=== PATIENT | male | born 1985 | race Caucasian/White ===

== ENCOUNTER 2019-07-29 08:34 | Inpatient (IN) | payer MEDICAID ==
[~2019-07-29] VITALS: Ht 154.9 cm; Wt 60.7 kg
[~2019-07-29 08:34] MED LIST: PROZ10 PO; QUET200T PO
[2019-07-29 08:59] VITALS: BP 121/68
[2019-07-29] MEDS ORDERED: HALOPERIDOL 5 MG TABLET PO PRN (09:15)
[2019-07-29] MEDS ORDERED: PROZ10 PO (09:20)
[2019-07-29] MEDS ORDERED: INFLUENZA VIRUS VACCINE QVS 2019-20 (3YR+)/PF 60 MCG/0.5 ML SYRINGE IM ONE (09:45)
[2019-07-29 10:20] VITALS: BP 103/74
[2019-07-29] MEDS: LORazepam 2 MG TABLET PO PRN (16:10)
[2019-07-29 17:49] VITALS: BP 125/77
[2019-07-30 00:08] VITALS: BP 108/66
[2019-07-30 07:49] LABS: BASOPHILS % (AUTO) 0.7 % (0.0-2.0); EOSINOPHILS % (AUTO) 1.9 % (1.0-6.0); HEMOGLOBIN 15.7 g/dL (13.5-17.5); LYMPHOCYTES # (AUTO) 2.1 K/uL (1.0-4.8); LYMPHOCYTES % (AUTO) 30.7 % (22.0-44.0); MEAN CORPUSCULAR HEMOGLOBIN 30.2 pg (26.0-34.0); MEAN CORPUSCULAR HGB CONC 34.1 G/dL (31.0-37.0); MEAN CORPUSCULAR VOLUME 89 fL (80-100); MONOCYTES # (AUTO) 0.5 K/uL (0.1-1.0); MONOCYTES % (AUTO) 8.2 % (2.0-9.0); NEUTROPHILS # (AUTO) 3.9 K/uL (1.8-7.7); NEUTROPHILS % (AUTO) 58.5 % (40.0-70.0); PLATELET COUNT (AUTO) 271 K/uL (150-450); RED BLOOD CELL COUNT(AUTO) 5.19 MIL/uL (4.50-5.90); RED CELL DISTRIBUTION WIDTH 12.5 % (11.5-14.5)
[2019-07-30 08:19] LABS: HEMOGLOBIN A1C 5.4 % (3.8-5.6)
[2019-07-30 08:22] LABS: APPEARANCE,URINE CLOUDY (CLEAR); BILIRUBIN,URINE NEGATIVE (NEGATIVE); GLUCOSE, URINE (UA) NEGATIVE (NEGATIVE); KETONES,URINE NEGATIVE (NEGATIVE); LEUKOCYTE ESTERASE ,URINE NEGATIVE (NEGATIVE); NITRATE,URINE NEGATIVE (NEGATIVE); OCCULT BLOOD,URINE NEGATIVE (NEGATIVE); PROTEIN,URINE NEGATIVE (NEGATIVE)
[2019-07-30 08:24] LABS: ALANINE AMINOTRANSFERASE 19 U/L (12-78); ALBUMIN 4.5 g/dL (3.4-5.0); ALKALINE PHOSPHATASE 76 U/L (46-116); ANION GAP 8 mmol/L (8-16); ASPARTATE AMINOTRANSFERASE 21 U/L (15-37); BILIRUBIN,TOTAL 0.7 mg/dL (0.1-1.0); CALCIUM, TOTAL 8.8 mg/dL (8.8-10.5); CARBON DIOXIDE 28 mmol/L (22-29); CHLORIDE 103 mmol/L (98-107); CHOL/HDL RATIO 2.8 (4.2-7.3); CHOLESTEROL 176 mg/dL (131-200); CREATININE 1.13 mg/dL (0.60-1.30); FREE T4 (FREE THYROXINE) 1.02 ng/dL (0.76-1.46); GLOMERULAR FILTR. RATE CALC > 60 mL/min (>60); GLUCOSE,RANDOM 87 mg/dL (70-110); HDL CHOLESTEROL 63 mg/dL (40-60); LDL CHOL (CALC.) 97 mg/dL (0-130); SODIUM SERUM 139 mmol/L (136-145); THYROID STIMULATING HORMONE 1.98 uIU/mL (0.36-3.74); TOTAL PROTEIN, SERUM 7.5 g/dL (6.4-8.2); TRIGLYCERIDES 82 mg/dL (15-150); UREA NITROGEN, BLOOD 16 mg/dL (7-18)
[2019-07-30 08:28] LABS: AMPHET/METH SCREEN,URINE NEGATIVE (NEGATIVE); BARBITURATE SCREEN, URINE NEGATIVE (NEGATIVE); BENZODIAZEPINES SCREEN,URINE NEGATIVE (NEGATIVE); CANNABINOID SCREEN,URINE POSITIVE (NEGATIVE); COCAINE SCREEN,URINE NEGATIVE (NEGATIVE); METHADONE SCREEN, URINE NEGATIVE (NEGATIVE); OPIATE SCREEN,URINE NEGATIVE (NEGATIVE)
[2019-07-30 08:36] LABS: PHENCYCLIDINE SCREEN,URINE NEGATIVE (NEGATIVE)
[2019-07-30 08:37] VITALS: BP 121/71
[2019-07-30] MEDS: ACYCLOVIR 5% 15 GM OINTMENT TP SCH ×3 (12:27→16:37)
[2019-07-30 16:08] VITALS: BP 119/73
[2019-07-31 00:30] VITALS: BP 101/64
[2019-07-31 08:22] VITALS: BP 114/76
[2019-07-31] MEDS: ARIPiprazole 5 MG TABLET PO SCH (08:24)
[2019-07-31] MEDS: ACYCLOVIR 5% 15 GM OINTMENT TP SCH ×3 (08:24→16:09)
[2019-07-31] MEDS: FLUoxetine HCL 20 MG CAPSULE PO SCH (08:24)
[2019-07-31 16:06] VITALS: BP 120/79
[2019-07-31] MEDS: ZOLPIDEM TARTRATE 10 MG TABLET PO PRN (21:03)
[2019-08-01 06:27] VITALS: BP 112/79
[2019-08-01 08:08] VITALS: BP 119/79
[2019-08-01] MEDS: ARIPiprazole 5 MG TABLET PO SCH (08:34)
[2019-08-01] MEDS: FLUoxetine HCL 20 MG CAPSULE PO SCH (08:34)
[2019-08-01] MEDS: ACYCLOVIR 5% 15 GM OINTMENT TP SCH ×3 (08:36→16:51)
[2019-08-01 16:04] VITALS: BP 120/72
[2019-08-02 00:03] VITALS: BP 114/73
[2019-08-02] MEDS: ZOLPIDEM TARTRATE 10 MG TABLET PO PRN (00:05)
[2019-08-02] MEDS: LORazepam 2 MG TABLET PO PRN ×2 (04:31→20:47)
[2019-08-02 08:19] VITALS: BP 127/84
[2019-08-02] MEDS: FLUoxetine HCL 20 MG CAPSULE PO SCH (08:32)
[2019-08-02] MEDS: ARIPiprazole 5 MG TABLET PO SCH (08:32)
[2019-08-02] MEDS: ACYCLOVIR 5% 15 GM OINTMENT TP SCH ×3 (08:33→16:10)
[2019-08-02 16:11] VITALS: BP 118/77
[2019-08-03 06:08] VITALS: BP 124/86
[2019-08-03 08:19] VITALS: BP 107/62
[2019-08-03] MEDS: FLUoxetine HCL 20 MG CAPSULE PO SCH (08:43)
[2019-08-03] MEDS: ARIPiprazole 5 MG TABLET PO SCH (08:43)
[2019-08-03] MEDS: ACYCLOVIR 5% 15 GM OINTMENT TP SCH ×3 (08:44→16:26)
[2019-08-03 16:49] VITALS: BP 105/84
[2019-08-03] MEDS: LORazepam 2 MG TABLET PO PRN (17:56)
[2019-08-03] MEDS: ZOLPIDEM TARTRATE 10 MG TABLET PO PRN (20:43)
[2019-08-04 00:50] VITALS: BP 136/79
[2019-08-04 08:11] VITALS: BP 130/70
[2019-08-04] MEDS: FLUoxetine HCL 20 MG CAPSULE PO SCH (09:00)
[2019-08-04] MEDS: ARIPiprazole 5 MG TABLET PO SCH (09:00)
[2019-08-04] MEDS: ACYCLOVIR 5% 15 GM OINTMENT TP SCH ×2 (09:01→12:43)
[2019-08-04] MEDS ORDERED: ARIP5TAB8 PO (11:48)
[2019-08-04] MEDS ORDERED: FLUO-191 PO (11:48)
== END 2019-08-04 18:14 | disposition home or self-care (01) | DRG 753 ==
LOC: B2S 10:15
DX: F31.4 Bipolar disorder, current episode depressed, severe, without psychotic features (principal); R45.851 Suicidal ideations; F12.10 Cannabis abuse, uncomplicated; F17.200 Nicotine dependence, unspecified, uncomplicated; I10 Essential (primary) hypertension; N40.0 Benign prostatic hyperplasia without lower urinary tract symptoms; F41.9 Anxiety disorder, unspecified; Z22.7 Latent tuberculosis; Z59.0 Homelessness; Z79.899 Other long term (current) drug therapy; Z81.8 Family history of other mental and behavioral disorders; Z91.5 Personal history of self-harm; Z28.21 Immunization not carried out because of patient refusal
CPT/HCPCS: 80307; 83036; 84439; 84443; 90686

== ENCOUNTER 2021-02-13 16:08 | Inpatient (IN) | payer MEDICAID ==
[~2021-02-13] VITALS: Ht 157.5 cm; Wt 68.9 kg
[~2021-02-13 16:08] MED LIST changes: +ARIP5TAB37 PO; +FLUO-191 PO; -PROZ10 PO; -QUET200T PO
[2021-02-13] MEDS ORDERED: HALOPERIDOL LACTATE 5 MG/ML VIAL ONE (16:38)
[2021-02-13] MEDS ORDERED: LORazepam 2 MG/ML VIAL ONE (16:38)
[2021-02-13] MEDS ORDERED: DiphenhydrAMINE HCL 50 MG/ML VIAL ONE (16:38)
[2021-02-13 17:00] LABS: COVID AG,FIA SOURCE NASOPHARYNGEAL
[2021-02-13] MEDS ORDERED: LORazepam 2 MG TABLET PO PRN (17:00)
[2021-02-13] MEDS ORDERED: HALOPERIDOL 5 MG TABLET PO PRN (17:00)
[2021-02-13] MEDS ORDERED: ZOLPIDEM TARTRATE 10 MG TABLET PO PRN (17:00)
[2021-02-13 17:44] LABS: BASOPHILS % (AUTO) 0.5 % (0.0-2.0); EOSINOPHILS % (AUTO) 0.8 % (1.0-6.0); HEMATOCRIT 44.2 % (41-53); HEMOGLOBIN 15.2 g/dL (13.5-17.5); LYMPHOCYTES # (AUTO) 1.3 K/uL (1.0-4.8); LYMPHOCYTES % (AUTO) 27.6 % (22.0-44.0); MEAN CORPUSCULAR HEMOGLOBIN 30.5 pg (26.0-34.0); MEAN CORPUSCULAR HGB CONC 34.4 G/dL (31.0-37.0); MEAN CORPUSCULAR VOLUME 88 fL (80-100); MONOCYTES # (AUTO) 0.3 K/uL (0.1-1.0); MONOCYTES % (AUTO) 7.1 % (2.0-9.0); NEUTROPHILS # (AUTO) 3.1 K/uL (1.8-7.7); PLATELET COUNT (AUTO) 293 K/uL (150-450)
[2021-02-13 18:00] LABS: ANION GAP 19 mmol/L (8-16); CALCIUM, TOTAL 8.4 mg/dL (8.8-10.5); CARBON DIOXIDE 22 mmol/L (22-29); CHLORIDE 106 mmol/L (98-107); CREATININE 1.06 mg/dL (0.60-1.30); GLOMERULAR FILTR. RATE CALC > 60 mL/min (>60); GLUCOSE,RANDOM 84 mg/dL (70-110); POTASSIUM 3.4 mmol/L (3.5-5.1); SODIUM SERUM 147 mmol/L (136-145); UREA NITROGEN, BLOOD 8 mg/dL (7-18)
[2021-02-13 18:06] LABS: ALANINE AMINOTRANSFERASE 23 U/L (12-78); ALKALINE PHOSPHATASE 109 U/L (46-116); ASPARTATE AMINOTRANSFERASE 33 U/L (15-37); BILIRUBIN,TOTAL 0.3 mg/dL (0.1-1.0); TOTAL PROTEIN, SERUM 7.5 g/dL (6.4-8.2)
[2021-02-13 18:09] LABS: AMPHET/METH SCREEN,URINE NEGATIVE (NEGATIVE); BARBITURATE SCREEN, URINE NEGATIVE (NEGATIVE); BENZODIAZEPINES SCREEN,URINE NEGATIVE (NEGATIVE); CANNABINOID SCREEN,URINE NEGATIVE (NEGATIVE); COCAINE SCREEN,URINE NEGATIVE (NEGATIVE); METHADONE SCREEN, URINE NEGATIVE (NEGATIVE); OPIATE SCREEN,URINE NEGATIVE (NEGATIVE)
[2021-02-13 18:12] LABS: PHENCYCLIDINE SCREEN,URINE NEGATIVE (NEGATIVE)
[2021-02-13] MEDS ORDERED: INFLUENZA VIRUS VACCINE QVS 2021-22 (6MO+)/PF 60 MCG/0.5 ML SYRINGE IM. ONE (20:30)
[2021-02-13] MEDS ORDERED: POTASSIUM CHLORIDE 20 MEQ ER TABLET PO ONE (20:30)
[2021-02-13 20:43] VITALS: BP 96/60
[2021-02-14 08:00] VITALS: BP 128/82
[2021-02-14 08:00] LABS: ANION GAP 10 mmol/L (8-16); CALCIUM, TOTAL 8.5 mg/dL (8.8-10.5); CARBON DIOXIDE 28 mmol/L (22-29); CHLORIDE 107 mmol/L (98-107); CHOL/HDL RATIO 3.4 (4.2-7.3); CHOLESTEROL 191 mg/dL (131-200); CREATININE 1.18 mg/dL (0.60-1.30); FREE T4 (FREE THYROXINE) 0.86 ng/dL (0.76-1.46); GLOMERULAR FILTR. RATE CALC > 60 mL/min (>60); GLUCOSE,RANDOM 94 mg/dL (70-110); HDL CHOLESTEROL 57 mg/dL (40-60); LDL CHOL (CALC.) 113 mg/dL (0-130); POTASSIUM 3.7 mmol/L (3.5-5.1); SODIUM SERUM 145 mmol/L (136-145); THYROID STIMULATING HORMONE 1.48 uIU/mL (0.36-3.74); TRIGLYCERIDES 105 mg/dL (15-150); UREA NITROGEN, BLOOD 9 mg/dL (7-18)
[2021-02-14] MEDS ORDERED: BENZOCAINE/MENTHOL LOZENGE PO PRN (08:00)
[2021-02-14] MEDS ORDERED: OMEPRAZOLE 20 MG CAPSULE PO PRN (08:00)
[2021-02-14] MEDS ORDERED: CloNIDine HCL 0.1 MG TABLET PO PRN (08:00)
[2021-02-14] MEDS ORDERED: MAG HYDROX/AL HYDROX/SIMETH ES 30 ML SUSPENSION UDCUP PO PRN (08:00)
[2021-02-14] MEDS ORDERED: ACETAMINOPHEN 325 MG TABLET PO PRN (08:00)
[2021-02-14] MEDS ORDERED: BACITRACIN 28 GM OINTMENT TP PRN (08:00)
[2021-02-14] MEDS ORDERED: MAGNESIUM HYDROXIDE SUSPENSION 30 ML UDCUP PO PRN (08:00)
[2021-02-14] MEDS ORDERED: ALBUTEROL SULFATE HFA 90 MCG/PUFF 8 GM INHALER IH PRN (08:00)
[2021-02-14] MEDS ORDERED: DOCUSATE SODIUM 100 MG CAPSULE PO PRN (08:00)
[2021-02-14] MEDS ORDERED: LOPERAMIDE HCL 2 MG CAPSULE PO PRN (08:00)
[2021-02-14] MEDS ORDERED: IBUPROFEN 600 MG TABLET PO PRN (08:00)
[2021-02-14] MEDS ORDERED: PETROLATUM,WHITE 28 GM JELLY TP PRN (08:00)
[2021-02-14] MEDS ORDERED: ONDANSETRON HCL 4 MG TABLET PO PRN (08:00)
[2021-02-14] MEDS: ARIPiprazole 5 MG TABLET PO SCH (11:29)
[2021-02-14] MEDS: FLUoxetine HCL 20 MG CAPSULE PO SCH (11:30)
[2021-02-14 16:00] VITALS: BP 150/88
[2021-02-15 08:12] VITALS: BP 125/81
[2021-02-15] MEDS: ARIPiprazole 5 MG TABLET PO SCH (08:46)
[2021-02-15] MEDS: FLUoxetine HCL 20 MG CAPSULE PO SCH (08:46)
[2021-02-15 16:35] VITALS: BP 140/90
[2021-02-16] MEDS: ARIPiprazole 5 MG TABLET PO SCH (09:02)
[2021-02-16] MEDS: FLUoxetine HCL 20 MG CAPSULE PO SCH (09:02)
[2021-02-16 09:26] VITALS: BP 136/93
== END 2021-02-16 14:00 | disposition home or self-care (01) | DRG 750 ==
LOC: EMS 16:10 → 3EC 16:51
PROVIDERS: ADMIT Psychiatry & Neurology Psychiatry; ATTEND Psychiatry & Neurology Psychiatry
DX: F25.9 Schizoaffective disorder, unspecified (principal); R45.851 Suicidal ideations; E87.6 Hypokalemia; Z20.822 Contact with and (suspected) exposure to COVID-19; F10.129 Alcohol abuse with intoxication, unspecified; F31.9 Bipolar disorder, unspecified; F41.9 Anxiety disorder, unspecified; I10 Essential (primary) hypertension; K59.00 Constipation, unspecified; G47.00 Insomnia, unspecified; Z78.1 Physical restraint status
CPT/HCPCS: 80048; 80053; 80061; 84439; 84443; 85025; 99291; G0480; J1200; J1630; J2060

== ENCOUNTER 2021-03-23 16:23 | Inpatient (IN) | payer MEDICAID ==
[~2021-03-23] VITALS: Ht 160 cm; Wt 70.0 kg
[2021-03-23 17:15] LABS: COVID AG,FIA SOURCE NASOPHARYNGEAL
[2021-03-23 17:41] LABS: BASOPHILS % (AUTO) 0.5 % (0.0-2.0); EOSINOPHILS % (AUTO) 0.4 % (1.0-6.0); HEMATOCRIT 43.5 % (41-53); HEMOGLOBIN 15.2 g/dL (13.5-17.5); LYMPHOCYTES # (AUTO) 1.7 K/uL (1.0-4.8); LYMPHOCYTES % (AUTO) 15.3 % (22.0-44.0); MEAN CORPUSCULAR HEMOGLOBIN 30.6 pg (26.0-34.0); MEAN CORPUSCULAR HGB CONC 34.9 G/dL (31.0-37.0); MEAN CORPUSCULAR VOLUME 88 fL (80-100); MONOCYTES # (AUTO) 0.4 K/uL (0.1-1.0); MONOCYTES % (AUTO) 3.5 % (2.0-9.0); NEUTROPHILS # (AUTO) 8.7 K/uL (1.8-7.7); NEUTROPHILS % (AUTO) 80.3 % (40.0-70.0); PLATELET COUNT (AUTO) 336 K/uL (150-450); RED BLOOD CELL COUNT(AUTO) 4.95 MIL/uL (4.50-5.90); RED CELL DISTRIBUTION WIDTH 12.4 % (11.5-14.5)
[2021-03-23 17:58] LABS: ALANINE AMINOTRANSFERASE 19 U/L (12-78); ALKALINE PHOSPHATASE 135 U/L (46-116); ANION GAP 13 mmol/L (8-16); ASPARTATE AMINOTRANSFERASE 25 U/L (15-37); BILIRUBIN,TOTAL 0.4 mg/dL (0.1-1.0); CALCIUM, TOTAL 8.4 mg/dL (8.8-10.5); CARBON DIOXIDE 26 mmol/L (22-29); CHLORIDE 107 mmol/L (98-107); CREATININE 1.14 mg/dL (0.60-1.30); GLOMERULAR FILTR. RATE CALC > 60 mL/min (>60); GLUCOSE,RANDOM 105 mg/dL (70-110); SODIUM SERUM 146 mmol/L (136-145); TOTAL PROTEIN, SERUM 7.5 g/dL (6.4-8.2); UREA NITROGEN, BLOOD 7 mg/dL (7-18)
[2021-03-23 18:01] LABS: POTASSIUM 2.9 mmol/L (3.5-5.1)
[2021-03-23] MEDS ORDERED: POTASSIUM CHLORIDE 20 MEQ ER TABLET PO ONE (18:15)
[2021-03-23] MEDS ORDERED: HALOPERIDOL 5 MG TABLET PO PRN (18:30)
[2021-03-23] MEDS ORDERED: ZOLPIDEM TARTRATE 10 MG TABLET PO PRN (18:30)
[2021-03-23] MEDS ORDERED: LORazepam 2 MG TABLET PO PRN (18:30)
[2021-03-24] MEDS ORDERED: ONDANSETRON HCL 4 MG TABLET PO PRN (08:00)
[2021-03-24] MEDS ORDERED: BENZOCAINE/MENTHOL LOZENGE PO PRN (08:00)
[2021-03-24] MEDS ORDERED: LOPERAMIDE HCL 2 MG CAPSULE PO PRN (08:00)
[2021-03-24] MEDS ORDERED: PETROLATUM,WHITE 28 GM JELLY TP PRN (08:00)
[2021-03-24] MEDS ORDERED: ALBUTEROL SULFATE HFA 90 MCG/PUFF 8 GM INHALER IH PRN (08:00)
[2021-03-24] MEDS ORDERED: OMEPRAZOLE 20 MG CAPSULE PO PRN (08:00)
[2021-03-24] MEDS ORDERED: ACETAMINOPHEN 325 MG TABLET PO PRN (08:00)
[2021-03-24] MEDS ORDERED: BACITRACIN 28 GM OINTMENT TP PRN (08:00)
[2021-03-24] MEDS ORDERED: DOCUSATE SODIUM 100 MG CAPSULE PO PRN (08:00)
[2021-03-24] MEDS ORDERED: CloNIDine HCL 0.1 MG TABLET PO PRN (08:00)
[2021-03-24] MEDS ORDERED: MAG HYDROX/AL HYDROX/SIMETH ES 30 ML SUSPENSION UDCUP PO PRN (08:00)
[2021-03-24] MEDS ORDERED: MAGNESIUM HYDROXIDE SUSPENSION 30 ML UDCUP PO PRN (08:00)
[2021-03-24] MEDS ORDERED: IBUPROFEN 600 MG TABLET PO PRN (08:00)
[2021-03-24] MEDS: MULTIVITAMINS WITH MINERALS, THERAPEUTIC TABLET PO SCH (08:21)
[2021-03-24 08:23] LABS: CHOL/HDL RATIO 3.7 (4.2-7.3)
[2021-03-24 08:30] VITALS: BP 132/97
[2021-03-24 08:47] LABS: POTASSIUM 4.9 mmol/L (3.5-5.1)
[2021-03-24 16:25] VITALS: BP 118/74
[2021-03-24] MEDS ORDERED: INFLUENZA VIRUS VACCINE QVS 2021-22 (6MO+)/PF 60 MCG/0.5 ML SYRINGE IM. ONE (19:00)
[2021-03-25 06:56] LABS: ANION GAP 6 mmol/L (8-16); CALCIUM, TOTAL 8.6 mg/dL (8.8-10.5); CARBON DIOXIDE 31 mmol/L (22-29); CHLORIDE 105 mmol/L (98-107); CREATININE 1.22 mg/dL (0.60-1.30); GLOMERULAR FILTR. RATE CALC > 60 mL/min (>60); GLUCOSE,RANDOM 104 mg/dL (70-110); POTASSIUM 4.6 mmol/L (3.5-5.1); SODIUM SERUM 142 mmol/L (136-145); UREA NITROGEN, BLOOD 11 mg/dL (7-18)
[2021-03-25 08:23] VITALS: BP 124/82
[2021-03-25] MEDS: ARIPiprazole 10 MG TABLET PO SCH ×3 (09:00→14:16)
[2021-03-25] MEDS: FLUoxetine HCL 20 MG CAPSULE PO SCH (10:22)
[2021-03-25] MEDS: MULTIVITAMINS WITH MINERALS, THERAPEUTIC TABLET PO SCH (10:22)
[2021-03-25 16:26] VITALS: BP 124/85
[2021-03-26] MEDS: ARIPiprazole 10 MG TABLET PO SCH (08:37)
[2021-03-26] MEDS: FLUoxetine HCL 20 MG CAPSULE PO SCH (08:37)
[2021-03-26] MEDS: MULTIVITAMINS WITH MINERALS, THERAPEUTIC TABLET PO SCH (08:37)
[2021-03-26 09:08] VITALS: BP 133/83
[2021-03-26 16:00] VITALS: BP 124/84
[2021-03-27] MEDS: ARIPiprazole 10 MG TABLET PO SCH (08:37)
[2021-03-27] MEDS: MULTIVITAMINS WITH MINERALS, THERAPEUTIC TABLET PO SCH (08:37)
[2021-03-27] MEDS: FLUoxetine HCL 20 MG CAPSULE PO SCH (08:38)
[2021-03-27 09:40] VITALS: BP 102/80
[2021-03-27] MEDS ORDERED: ARIP10TA38 PO (11:24)
== END 2021-03-27 12:30 | disposition home or self-care (01) | DRG 750 ==
LOC: EMS 16:24 → 3EC 21:56
PROVIDERS: ADMIT Psychiatry & Neurology Psychiatry; ATTEND Psychiatry & Neurology Psychiatry
DX: F25.1 Schizoaffective disorder, depressive type (principal); E87.0 Hyperosmolality and hypernatremia; E86.0 Dehydration; E87.6 Hypokalemia; F12.90 Cannabis use, unspecified, uncomplicated; F41.9 Anxiety disorder, unspecified; G47.00 Insomnia, unspecified; I10 Essential (primary) hypertension; K59.00 Constipation, unspecified; F10.129 Alcohol abuse with intoxication, unspecified; Z20.822 Contact with and (suspected) exposure to COVID-19; Z28.21 Immunization not carried out because of patient refusal
CPT/HCPCS: 80048; 80053; 80061; 84132; 84295; 85025; 99285; G0480

== ENCOUNTER 2021-08-19 13:24 | Inpatient (IN) | payer MEDICAID ==
[~2021-08-19] VITALS: Ht 167.6 cm; Wt 75.0 kg
[~2021-08-19 13:24] MED LIST changes: +ARIP10TA38 PO; -ARIP5TAB37 PO; +FLUO-177 PO; -FLUO-191 PO
[2021-08-19] MEDS ORDERED: DiphenhydrAMINE HCL 50 MG/ML VIAL ONE (13:41)
[2021-08-19] MEDS ORDERED: HALOPERIDOL LACTATE 5 MG/ML VIAL ONE (13:41)
[2021-08-19] MEDS ORDERED: LORazepam 2 MG/ML VIAL ONE (13:41)
[2021-08-19] MEDS ORDERED: FLUO20CA36 PO (13:42)
[2021-08-19] MEDS ORDERED: HALOPERIDOL LACTATE 5 MG/ML VIAL IM ONE (13:45)
[2021-08-19] MEDS ORDERED: LORazepam 2 MG/ML VIAL IM ONE (13:45)
[2021-08-19] MEDS ORDERED: DiphenhydrAMINE HCL 50 MG/ML VIAL IM ONE (13:45)
[2021-08-19 14:59] LABS: COVID AG,FIA SOURCE NASOPHARYNGEAL
[2021-08-19] MEDS ORDERED: LORazepam 2 MG TABLET PO PRN (15:00)
[2021-08-19] MEDS ORDERED: HALOPERIDOL 5 MG TABLET PO PRN (15:00)
[2021-08-19] MEDS ORDERED: ZOLPIDEM TARTRATE 10 MG TABLET PO PRN (15:00)
[2021-08-19 15:01] LABS: BASOPHILS % (AUTO) 0.5 % (0.0-2.0); EOSINOPHILS % (AUTO) 0.5 % (1.0-6.0); HEMATOCRIT 42.9 % (41-53); HEMOGLOBIN 15.1 g/dL (13.5-17.5); LYMPHOCYTES # (AUTO) 1.2 K/uL (1.0-4.8); LYMPHOCYTES % (AUTO) 19.2 % (22.0-44.0); MEAN CORPUSCULAR HEMOGLOBIN 29.9 pg (26.0-34.0); MEAN CORPUSCULAR HGB CONC 35.1 G/dL (31.0-37.0); MEAN CORPUSCULAR VOLUME 85 fL (80-100); MONOCYTES # (AUTO) 0.3 K/uL (0.1-1.0); MONOCYTES % (AUTO) 5.5 % (2.0-9.0); NEUTROPHILS # (AUTO) 4.6 K/uL (1.8-7.7); NEUTROPHILS % (AUTO) 74.3 % (40.0-70.0); PLATELET COUNT (AUTO) 322 K/uL (150-450); RED BLOOD CELL COUNT(AUTO) 5.05 MIL/uL (4.50-5.90); RED CELL DISTRIBUTION WIDTH 11.8 % (11.5-14.5)
[2021-08-19 15:15] LABS: ANION GAP 14 mmol/L (8-16); CALCIUM, TOTAL 8.5 mg/dL (8.8-10.5); CARBON DIOXIDE 25 mmol/L (22-29); CHLORIDE 106 mmol/L (98-107); CREATININE 1.17 mg/dL (0.60-1.30); GLOMERULAR FILTR. RATE CALC > 60 mL/min (>60); GLUCOSE,RANDOM 92 mg/dL (70-110); POTASSIUM 3.2 mmol/L (3.5-5.1); SODIUM SERUM 145 mmol/L (136-145); UREA NITROGEN, BLOOD 9 mg/dL (7-18)
[2021-08-19 15:21] LABS: ALANINE AMINOTRANSFERASE 22 U/L (12-78); ALKALINE PHOSPHATASE 108 U/L (46-116); ASPARTATE AMINOTRANSFERASE 34 U/L (15-37); BILIRUBIN,TOTAL 0.4 mg/dL (0.1-1.0); LIPASE 159 U/L (73-393); TOTAL PROTEIN, SERUM 7.6 g/dL (6.4-8.2)
[2021-08-19] MEDS ORDERED: POTASSIUM CHLORIDE 20 MEQ ER TABLET PO ONE (15:30)
[2021-08-20 02:43] LABS: APPEARANCE,URINE CLEAR (CLEAR); BILIRUBIN,URINE NEGATIVE (NEGATIVE); GLUCOSE, URINE (UA) NEGATIVE (NEGATIVE); KETONES,URINE NEGATIVE (NEGATIVE); LEUKOCYTE ESTERASE ,URINE NEGATIVE (NEGATIVE); NITRATE,URINE NEGATIVE (NEGATIVE); OCCULT BLOOD,URINE NEGATIVE (NEGATIVE); PROTEIN,URINE NEGATIVE (NEGATIVE); SPECIFIC GRAVITIY, URINE 1.009 (1.003-1.030); UROBILINOGEN,URINE <=1.0 mg/dL (<=1.0)
[2021-08-20 02:49] LABS: AMPHET/METH SCREEN,URINE NEGATIVE (NEGATIVE); BARBITURATE SCREEN, URINE NEGATIVE (NEGATIVE); BENZODIAZEPINES SCREEN,URINE NEGATIVE (NEGATIVE); CANNABINOID SCREEN,URINE POSITIVE (NEGATIVE); COCAINE SCREEN,URINE NEGATIVE (NEGATIVE); METHADONE SCREEN, URINE NEGATIVE (NEGATIVE); OPIATE SCREEN,URINE NEGATIVE (NEGATIVE); PHENCYCLIDINE SCREEN,URINE NEGATIVE (NEGATIVE)
[2021-08-20 08:43] VITALS: BP 125/68
[2021-08-20 08:45] VITALS: BP 125/85
[2021-08-20] MEDS: FLUoxetine HCL 20 MG CAPSULE PO SCH (13:57)
[2021-08-20] MEDS ORDERED: GuaiFENesin/D-METHORPHAN [SUGAR-FREE] 200-20MG/10 ML SYRUP UDCUP PO PRN (15:30)
[2021-08-20] MEDS ORDERED: ONDANSETRON HCL 4 MG TABLET PO PRN (15:30)
[2021-08-20] MEDS ORDERED: PETROLATUM,WHITE 28 GM JELLY TP PRN (15:30)
[2021-08-20] MEDS ORDERED: CloNIDine HCL 0.1 MG TABLET PO PRN (15:30)
[2021-08-20] MEDS ORDERED: MAGNESIUM HYDROXIDE SUSPENSION 30 ML UDCUP PO PRN (15:30)
[2021-08-20] MEDS ORDERED: MAG HYDROX/AL HYDROX/SIMETH ES 30 ML SUSPENSION UDCUP PO PRN (15:30)
[2021-08-20] MEDS ORDERED: IBUPROFEN 400 MG TABLET PO PRN (15:30)
[2021-08-20] MEDS ORDERED: DOCUSATE SODIUM 100 MG CAPSULE PO PRN (15:30)
[2021-08-20] MEDS ORDERED: LOPERAMIDE HCL 2 MG CAPSULE PO PRN (15:30)
[2021-08-20] MEDS ORDERED: NICOTINE 14 MG/24 HOUR PATCH TD PRN (15:30)
[2021-08-20] MEDS ORDERED: ALBUTEROL SULFATE HFA 90 MCG/PUFF 8 GM INHALER IH PRN (15:30)
[2021-08-20] MEDS ORDERED: ACETAMINOPHEN 325 MG TABLET PO PRN (15:30)
[2021-08-20] MEDS: RisperiDONE 1 MG TABLET PO SCH (16:54)
[2021-08-20 16:58] VITALS: BP 113/82
[2021-08-20 18:54] VITALS: BP 130/74
[2021-08-21 08:11] VITALS: BP 139/99
[2021-08-21] MEDS: FLUoxetine HCL 20 MG CAPSULE PO SCH (08:29)
[2021-08-21] MEDS: RisperiDONE 1 MG TABLET PO SCH ×2 (08:29→16:15)
[2021-08-21 09:12] LABS: CHOL/HDL RATIO 3.1 (4.2-7.3)
[2021-08-21 16:01] VITALS: BP 117/75
[2021-08-22] MEDS: RisperiDONE 1 MG TABLET PO SCH (07:43)
[2021-08-22] MEDS: FLUoxetine HCL 20 MG CAPSULE PO SCH (07:44)
[2021-08-22 08:03] VITALS: BP 127/84
[2021-08-22] MEDS ORDERED: PROZ20 PO (10:01)
[2021-08-22] MEDS ORDERED: RISP1TAB98 PO (10:01)
== END 2021-08-22 13:00 | disposition home or self-care (01) | DRG 750 ==
LOC: EMS 13:24 → 3EC 08-20 09:01
PROVIDERS: ADMIT Psychiatry & Neurology Child & Adolescent Psychiatry; ATTEND Psychiatry & Neurology Child & Adolescent Psychiatry
DX: F20.9 Schizophrenia, unspecified (principal); R45.851 Suicidal ideations; E87.6 Hypokalemia; F10.10 Alcohol abuse, uncomplicated; F32.A Depression, unspecified; I10 Essential (primary) hypertension; Y90.6 Blood alcohol level of 120-199 mg/100 ml; Z20.822 Contact with and (suspected) exposure to COVID-19; Z78.1 Physical restraint status; F19.10 Other psychoactive substance abuse, uncomplicated; F41.9 Anxiety disorder, unspecified; F81.9 Developmental disorder of scholastic skills, unspecified; R62.50 Unspecified lack of expected normal physiological development in childhood; Z72.89 Other problems related to lifestyle; Z71.51 Drug abuse counseling and surveillance of drug abuser
CPT/HCPCS: 80053; 80061; 81003; 83690; 85025; 99285; G0480; J1200; J1630; J2060